=== PATIENT | male | born 1985 | race Caucasian/White ===

== ENCOUNTER 2023-01-21 10:34 | Emergency (ER) | payer SELFPAY ==
[~2023-01-21] VITALS: Ht 167.6 cm; Wt 60.7 kg
[2023-01-21 11:08] LABS: BASOPHILS % 0.5 % (0.0-2.0); EOSINOPHILS % 2.5 % (0.0-5.0); HEMOGLOBIN. 14.5 g/dL (14.0-18.0); LYMPHOCYTES % 34.4 % (20.0-50.0); MEAN CORPUSCULAR HEMOGLOBIN 31.2 pg (28.0-32.0); MEAN CORPUSCULAR VOLUME 90.3 fL (80.0-94.0); MEAN PLATELET VOLUME 9.3 fl (7.4-10.4); MONOCYTES % 6.2 % (2.0-8.0); NEUTROPHILS % 56.4 % (40.0-76.0); PLATELET 213 x1000/uL (130-400); RED BLOOD CELL COUNT 4.66 mill/uL (4.7-6.1); RED CELL DISTRIBUTION WIDTH 13.3 % (11.6-14.6)
[2023-01-21 11:13] LABS: CHLORIDE 103 mEq/L (98-107)
[2023-01-21 12:21] VITALS: BP 109/71
[2023-01-21] MEDS ORDERED: IBUP-2029 MT (12:33)
== END 2023-01-21 12:56 | disposition home or self-care (01) ==
LOC: ER 10:34
DX: R07.89 Other chest pain (principal); R09.1 Pleurisy
CPT/HCPCS: 36415; 71045; 80053; 84484; 85025; 93005; 99285